=== PATIENT | male | born 1935 | race Caucasian/White ===

== ENCOUNTER 2019-01-30 13:44 | Emergency (ER) | payer MEDICARE, OTHER ==
[~2019-01-30] VITALS: Ht 172.7 cm; Wt 63.6 kg
[2019-01-30 13:51] VITALS: Ht 172.7 cm; Wt 63.6 kg
[2019-01-30] MEDS ORDERED: MOTRIN600 MG PEG (14:48)
[2019-01-30 15:19] VITALS: BP 137/67
== END 2019-01-30 15:20 | disposition home or self-care (01) ==
LOC: D.ER 13:44
DX: M54.6 Pain in thoracic spine (principal); F17.210 Nicotine dependence, cigarettes, uncomplicated